=== PATIENT | female | born 1990 | race Caucasian/White ===

== ENCOUNTER 2016-12-24 13:09 | Emergency (ER) | payer BC, MEDICAID ==
[2016-12-24] MEDS ORDERED: Sodium Chloride 0.9% 10 ML Syringe FLUSH PRN (14:02)
[2016-12-24] MEDS ORDERED: Lactated Ringers 1,000 ML IV ONE (14:02)
--- NOTE | 2016-12-24 14:09 | EDM.PDOC ---
ED HPI GENERAL MEDICAL PROBLEM - General Chief Complaint: Respiratory Problem Stated Complaint: CHEST CONGESTION AND COUGH SOB Time Seen by Provider: 12/24/16 14:03 Source of Information: Reports: Patient History Limitations: Reports: No Limitations - History of Present Illness INITIAL COMMENTS - FREE TEXT/NARRATIVE: 26-year-old female presents for evaluation and treatment of diarrhea, cough and a decreased appetite. Patient reports her symptoms first started 2 days ago. Currently complaining of diarrhea, feeling dehydrated, epigastric discomfort, nausea and a cough. Patient reports that she is having about 3 to 6 episodes of diarrhea per day. No blood in her stool. Reports decreased appetite. No vomiting. she is unsure if she has any fevers she does not have a thermometer.Reports that she does have a productive cough. No urinary symptoms. Patient reports that she works at [employer] and several coworkers have been ill with similar symptoms. No recent travel. patient reports that there is a chance of ./ Middle Chest Pain Score (Numeric/FACES): 5 - Related Data Allergies Allergy/AdvReac Type Severity Reaction Status Date / Time Penicillins Allergy Rash Verified 12/24/16 13:19 Home Meds: Home Meds . [No Known Home Meds] 12/24/16 [History] Past Medical History - Past Surgical History HEENT Surgical History: Reports: Tonsillectomy GI Surgical History: Reports: Appendectomy Social & Family History - Tobacco Use Smoking Status *Q: Current Every Day Smoker Years of Tobacco use: 3 Packs/Tins Daily: 0.5 - Alcohol Use Days Per Week of Alcohol Use: 2 Number of Drinks Per Day: 2 Total Drinks Per Week: 4 - Recreational Drug Use Recreational Drug Use: No Drug Use in Last 12 Months: No - Living Situation & Occupation Living situation: Reports: with Family Occupation: Unemployed ED ROS GENERAL - Review of Systems Review Of Systems: See Below Constitutional: Denies: Fever (unsure) HEENT: Reports: Ear Pain, Throat Pain Respiratory: Reports: Cough, Sputum GI/Abdominal: Reports: Abdominal Pain (epigastric), Diarrhea, Nausea. Denies: Vomiting : Reports: No Symptoms. Denies: Dysuria ED EXAM, GENERAL - Physical Exam Exam: See Below Exam Limited By: No Limitations General Appearance: Alert, WD/WN, No Apparent Distress Eye Exam: Bilateral Eye: Normal Inspection Ears: Normal External Exam, Normal Canal, Hearing Grossly Normal, Normal TMs Nose: Normal Inspection Throat/Mouth: Normal Inspection, Normal Lips, Normal Oropharynx, Normal Voice, No Airway Compromise Respiratory/Chest: No Respiratory Distress, Lungs Clear, Normal Breath Sounds Cardiovascular: Normal Peripheral Pulses, Regular Rate, Rhythm, No Murmur GI/Abdominal: Normal Bowel Sounds, Soft, Non-Tender Neurological: Alert, Oriented, Normal Cognition Psychiatric: Normal Affect, Normal Mood Skin Exam: Warm, Dry, Normal Color Course - Vital Signs Last Recorded V/S: Last Vital Signs Temp 36.7 C 12/24/16 13:17 Pulse 82 12/24/16 15:40 Resp 16 12/24/16 15:40 BP 122/80 12/24/16 15:40 Pulse Ox 100 12/24/16 15:40 - Orders/Labs/Meds Labs: Laboratory Tests 12/24/16 12/24/16 12/24/16 Range/Units 14:15 14:15 14:15 WBC 11.86 H (3.98-10.04) K/mm3 RBC 4.40 (3.98-5.22) M/mm3 Hgb 14.4 (11.2-15.7) gm/L Hct 41.3 (34.1-44.9) % MCV 93.9 (79.4-94.8) fl MCH 32.7 H (25.6-32.2) pg MCHC 34.9 (32.2-35.5) g/dl RDW Std Deviation 44.3 (36.4-46.3) fL Plt Count 213 (182-369) K/mm3 MPV 10.5 (9.4-12.3) fl Neut % (Auto) 71.2 H (34.0-71.1) % Lymph % (Auto) 16.7 L (19.3-51.7) % Patrick % (Auto) 9.9 (4.7-12.5) % Eos % (Auto) 1.8 (0.7-5.8) Baso % (Auto) 0.3 (0.1-1.2) % Neut # (Auto) 8.45 H (1.56-6.13) K/mm3 Lymph # (Auto) 1.98 (1.18-3.74) K/mm3 Patrick # (Auto) 1.18 H (0.24-0.36) K/mm3 Eos # (Auto) 0.21 (0.04-0.36) K/mm3 Baso # (Auto) 0.03 (0.01-0.08) K/mm3 Sodium 141 (136-145) mEq/L Potassium 3.8 (3.5-5.1) mEq/L Chloride 106 (98-107) mEq/L Carbon Dioxide 27 (21-32) mEq/L Anion Gap 11.8 (5-15) BUN 7 (7-18) mg/dL Creatinine 0.8 (0.55-1.02) mg/dL Est Cr Clr Drug Dosing 125.13 mL/min Estimated GFR (MDRD) > 60 (>60) mL/min BUN/Creatinine Ratio 8.8 L (14-18) Glucose 91 (74-106) mg/dL Calcium 9.4 (8.5-10.1) mg/dL HCG, Qual Negative (NEGATIVE) Meds: Medications Discontinued Medications Generic Name Dose Route Start Last Admin Trade Name Freq PRN Reason Stop Dose Admin Lactated Ringer's 1,000 mls @ 999 mls/hr 12/24/16 14:02 12/24/16 14:20 Ringers, Lactated IV 12/24/16 15:02 999 mls/hr .BOLUS ONE Administration Sodium Chloride 10 ml 12/24/16 14:02 12/24/16 14:18 Saline Flush FLUSH 10 ml ASDIRECTED PRN Administration Keep Vein Open - Re-Assessments/Exams Free Text/Narrative Re-Assessment/Exam: 12/24/16 15:24 I reviewed the lab results with patient. She feels improved after getting some fluids. I will discharge her home. Likely a viral gastroenteritis causing her symptoms today. Discharge instructions this document. Departure - Departure Time of Disposition: 15:24 Disposition: Home, Self-Care 01 Condition: Good Clinical Impression: Viral gastroenteritis - Discharge Information Instructions: Viral Gastroenteritis, Adult, [id number] Referrals: PCP,None [Primary Care Provider] - Carolyn Alexandra PA [Physician [employer]] - Forms: ED Department Discharge, ED Return to Work/School Form Additional Instructions: rest and drink plenty of fluids. Expect this to last another 2-3 days. If your symptoms persist beyond 3 days upon follow-up with family medicine. Recommend Carolyn Alexandra at the [facility]. Please call [phone] to schedule with her. Recommend starting yogurt or a probiotics to help good bacteria back into your stomach. Recommend a bland diet. Arnold diet recommendations include egg whites, bananas, bread, rice, applesauce, toast, yogurt, etc. please return to the ER if your symptoms change or worsen.
[2016-12-24 15:45] VITALS: BP 122/80
== END 2016-12-24 15:45 | disposition home or self-care (01) ==
LOC: JD.ED 13:09
DX: A08.4 Viral intestinal infection, unspecified (principal); F17.210 Nicotine dependence, cigarettes, uncomplicated; Z88.0 Allergy status to penicillin
CPT/HCPCS: 36415; 80048; 84703; 85025; 87804; 96360; 99283; J7050; J7120

== ENCOUNTER 2022-05-05 14:39 | Emergency (ER) | payer MEDICAID ==
[2022-05-05 14:52] VITALS: BP 132/91; PULSE 90
[2022-05-05] MEDS ORDERED: HYDROmorphone 1 MG/ML Syringe IM ONE (15:14)
== END 2022-05-05 20:03 | disposition home or self-care (01) ==
LOC: JD.ED 14:39
DX: R10.2 Pelvic and perineal pain (principal); Z72.0 Tobacco use; Z88.0 Allergy status to penicillin
CPT/HCPCS: 76830; 81001; 96372; 99284; J1170; 99283

== ENCOUNTER 2022-05-28 05:43 | Emergency (ER) | payer MEDICAID ==
[2022-05-28 06:09] VITALS: BP 107/62; PULSE 118
[2022-05-28] MEDS ORDERED: predniSONE 20 MG Tab PO ONE (06:12)
[2022-05-28] MEDS ORDERED: Triamcinolone Acetonide 0.1% Crm 15 GM Tube TOP ONE (06:14)
[2022-05-28] MEDS ORDERED: predniSONE 10 MG Tab PO ONE (06:14)
== END 2022-05-28 06:40 | disposition home or self-care (01) ==
LOC: JD.ED 05:43
DX: L27.1 Localized skin eruption due to drugs and medicaments taken internally (principal); T36.4X5A Adverse effect of tetracyclines, initial encounter; L25.9 Unspecified contact dermatitis, unspecified cause; Z72.0 Tobacco use; Z88.0 Allergy status to penicillin; Z86.16 Personal history of COVID-19
CPT/HCPCS: 99283; A9270; J7512

== ENCOUNTER 2022-06-27 06:52 | Day surgery (SDC) | payer MEDICAID ==
[~2022-06-27 06:52] MED LIST: Lidocaine 1%/Sod Bicarbonate in NS 8.4% 1 ML Syringe IDERM PRN; Sodium Chloride 0.9% 10 ML Syringe FLUSH PRN; Sodium Chloride 0.9% 10 ML Syringe FLUSH SCH
[2022-06-27] MEDS ORDERED: Bupivacaine 0.5% 30 ML SDV ONE (07:22)
[2022-06-27] MEDS ORDERED: Bupivacaine 0.25%/EPINEPHrine 1:200,000 30 ML SDV ONE (07:23)
[2022-06-27] MEDS ORDERED: Propofol 200 MG/20 ML SDV ONE (07:29)
[2022-06-27] MEDS ORDERED: fentaNYL 100 MCG/2 ML SDV ONE ×2 (07:30→08:23)
[2022-06-27] MEDS ORDERED: Lidocaine 1% 5 ML VIAL ONE (07:30)
[2022-06-27] MEDS: Lactated Ringers 1,000 ML IV SCH ×2 (07:30→10:30)
[2022-06-27] MEDS ORDERED: Rocuronium 50 MG/5 ML Vial ONE ×2 (07:30→08:23)
[2022-06-27] MEDS ORDERED: Midazolam 1 MG/ML 2 ML SDV ONE (07:30)
[2022-06-27 07:55] LABS: ESTIMATED GFR 102 mL/min (>60)
[2022-06-27] MEDS ORDERED: ceFAZolin 2 GM Vial ONE (08:23)
[2022-06-27] MEDS ORDERED: Dexamethasone 4 MG/ML 5 ML MDV ONE (08:23)
[2022-06-27] MEDS ORDERED: Lactated Ringers 1,000 ML ONE ×2 (08:23→09:48)
[2022-06-27] MEDS ORDERED: Sugammadex Sodium 200 MG/2 ML VIAL ONE (09:21)
[2022-06-27] MEDS ORDERED: Ondansetron 4 MG/2 ML SDV ONE (09:29)
[2022-06-27] MEDS ORDERED: Ketorolac 30 MG/ML SDV ONE (09:29)
[2022-06-27] MEDS ORDERED: Ondansetron 4 MG/2 ML SDV IVPUSH PRN (09:36)
[2022-06-27] MEDS ORDERED: fentaNYL 100 MCG/2 ML SDV IVPUSH PRN (09:36)
[2022-06-27] MEDS: HYDROmorphone 0.5 MG/0.5 ML Syringe IVPUSH PRN ×2 (09:44→10:24)
[2022-06-27] MEDS ORDERED: Acetaminophen/oxyCODONE 325-5 MG Tab PO PRN (10:10)
[2022-06-27 14:50] VITALS: BP 110/77; PULSE 77
== END 2022-06-27 11:53 | disposition home or self-care (01) ==
LOC: JD.SDS 06:52
PROVIDERS: ATTEND Obstetrics & Gynecology
DX: N80.03 Adenomyosis of the uterus (principal); N70.01 Acute salpingitis; N70.11 Chronic salpingitis; F32.A Depression, unspecified; F17.210 Nicotine dependence, cigarettes, uncomplicated; Z88.0 Allergy status to penicillin; Z88.1 Allergy status to other antibiotic agents; Z88.8 Allergy status to other drugs, medicaments and biological substances; Z79.899 Other long term (current) drug therapy
CPT/HCPCS: 36415; 58552; 80048; 81025; 85025; 86850; 86900; 86901; A9270; J0690; J1100; J1170; J1885; J2250; J2405; J2704; J3010; J3490; J7120; 00944

== ENCOUNTER 2022-07-07 21:02 | Emergency (ER) | payer MEDICAID ==
[2022-07-07 21:16] VITALS: BP 112/76; PULSE 92
[2022-07-07] MEDS ORDERED: HYDROmorphone 1 MG/ML Syringe IVPUSH ONE (21:18)
[2022-07-07] MEDS ORDERED: Sodium Chloride 0.9% 1,000 ML IV ONE (21:18)
[2022-07-07] MEDS ORDERED: Sodium Chloride 0.9% 10 ML Syringe FLUSH PRN (21:18)
[2022-07-07] MEDS ORDERED: Ondansetron 4 MG/2 ML SDV IVPUSH ONE (21:18)
[2022-07-07] MEDS ORDERED: Iopamidol 612 MG/ML 100 ML Bottle IVPUSH ONE (21:33)
[2022-07-07] MEDS ORDERED: Levofloxacin/Dextrose 5%-Water 750 MG in Premix Bag 1 BAG IV ONE (22:47)
== END 2022-07-08 00:40 | disposition home or self-care (01) ==
LOC: JD.ED 21:02
DX: N30.01 Acute cystitis with hematuria (principal); N83.202 Unspecified ovarian cyst, left side; Z90.710 Acquired absence of both cervix and uterus; Z88.1 Allergy status to other antibiotic agents; Z88.0 Allergy status to penicillin; Z91.09 Other allergy status, other than to drugs and biological substances; Z86.16 Personal history of COVID-19
CPT/HCPCS: 36415; 74177; 80053; 81001; 83690; 83735; 85025; 86140; 87086; 96361; 96374; 96375; 99284; J1170; J1956; J2405; J7030; Q9967; 99283

== ENCOUNTER 2022-10-07 17:36 | Emergency (ER) | payer MEDICAID ==
[2022-10-07] MEDS ORDERED: Famotidine 20 MG/2 ML SDV IVPUSH ONE (17:48)
[2022-10-07] MEDS ORDERED: EPINEPHrine 1 MG/ML SDV IM ONE (17:48)
[2022-10-07] MEDS ORDERED: methylPREDNISolone Sodium Succinate 125 MG/2 ML SDV IVPUSH ONE (17:48)
[2022-10-07 21:23] VITALS: BP 120/75; PULSE 75
== END 2022-10-07 21:10 | disposition home or self-care (01) ==
LOC: JD.ED 17:36
DX: T78.40XA Allergy, unspecified, initial encounter (principal); Z88.1 Allergy status to other antibiotic agents; Z88.0 Allergy status to penicillin; Z91.09 Other allergy status, other than to drugs and biological substances; Z86.16 Personal history of COVID-19
CPT/HCPCS: 96372; 96374; 96375; 99283; J0171; J2930; J3490; 99284

== ENCOUNTER 2022-10-31 11:38 | Emergency (ER) | payer MEDICAID ==
[2022-10-31] MEDS ORDERED: Ketorolac 60 MG/2 ML SDV IM ONE (13:59)
[2022-10-31 15:28] VITALS: BP 121/78; PULSE 91
== END 2022-10-31 15:30 | disposition home or self-care (01) ==
LOC: JD.ED 11:38
DX: M72.2 Plantar fascial fibromatosis (principal); Z88.1 Allergy status to other antibiotic agents; Z88.0 Allergy status to penicillin; Z91.048 Other nonmedicinal substance allergy status; Z86.16 Personal history of COVID-19
CPT/HCPCS: 73630; 96372; 99283; J1885

== ENCOUNTER 2022-11-12 15:17 | Emergency (ER) | payer MEDICAID ==
[2022-11-12 16:13] LABS: BASOPHILS ABSOLUTE AUTO 0.04 K/mm3 (0.01-0.08); BASOPHILS PERCENT AUTO 0.3 % (0.1-1.2); EOSINOPHILS ABSOLUTE AUTO 0.07 K/mm3 (0.04-0.36); EOSINOPHILS PERCENT AUTO 0.5 (0.7-5.8); HEMATOCRIT 41.8 % (34.1-44.9); HEMOGLOBIN 14.2 gm/dl (11.2-15.7); IMMATURE GRAN ABSOLUTE AUTO 0.05 K/mm3 (0.00-0.10); IMMATURE GRAN PERCENT AUTO 0.4 % (<=1.0); LYMPHOCYTES PERCENT AUTO 24.5 % (19.3-51.7); MEAN CORPUSCULAR HEMOGLOBIN 32.3 pg (25.6-32.2); MEAN PLATELET VOLUME 9.9 fl (9.4-12.3); MONOCYTES PERCENT AUTO 7.9 % (4.7-12.5); NEUTROPHILS ABSOLUTE AUTO 9.22 K/mm3 (1.56-6.13); NEUTROPHILS PERCENT AUTO 66.4 % (34.0-71.1); PLATELET COUNT,PLT 275 K/mm3 (182-369); WHITE BLOOD CELL COUNT,WBC 13.88 K/mm3 (3.98-10.04)
[2022-11-12 16:37] LABS: A/G RATIO 1.1 (1-2); ALANINE AMINOTRANSFERASE,ALT 21 U/L (14-59); ALBUMIN 3.9 g/dl (3.4-5.0); ALKALINE PHOSPHATASE 68 U/L (46-116); ASPARTATE AMNIOTRANSFERASE,AST 16 U/L (15-37); BILIRUBIN TOTAL 0.5 mg/dL (0.2-1.0); BLOOD UREA NITROGEN,BUN 12 mg/dL (7-18); CALCIUM 9.5 mg/dL (8.5-10.1); CARBON DIOXIDE,CO2 25 mEq/L (21-32); CHLORIDE,CL 100 mEq/L (98-107); CREATININE 0.8 mg/dL (0.55-1.02); EST CRCL DRUG DOSING (CG) 118.66 mL/min; ESTIMATED GFR 102 mL/min (>60); GLUCOSE RANDOM 90 mg/dL (70-99); MAGNESIUM 1.9 mg/dL (1.8-2.4); PROTEIN TOTAL,TP 7.5 g/dl (6.4-8.2); SODIUM,NA 136 mEq/L (136-145)
[2022-11-12 16:40] LABS: TROPONIN I HIGH SENSITIVITY < 4 pg/mL (<=51)
[2022-11-12] MEDS ORDERED: Ondansetron 4 MG/2 ML SDV IVPUSH ONE (17:13)
[2022-11-12] MEDS ORDERED: Sodium Chloride 0.9% 1,000 ML IV ONE (17:13)
[2022-11-12] MEDS ORDERED: Ondansetron 4 MG Tab.DIS PO ONE (19:09)
[2022-11-13 04:45] VITALS: BP 122/78; PULSE 72
== END 2022-11-12 19:15 | disposition home or self-care (01) ==
LOC: JD.ED 15:17
DX: J06.9 Acute upper respiratory infection, unspecified (principal); Z88.1 Allergy status to other antibiotic agents; Z88.0 Allergy status to penicillin; Z91.048 Other nonmedicinal substance allergy status; Z86.16 Personal history of COVID-19; Z72.0 Tobacco use
CPT/HCPCS: 36415; 71045; 80053; 83735; 84484; 85025; 86140; 93005; 99285; A9270; 93010; 99284

== ENCOUNTER 2023-06-14 03:44 | Emergency (ER) | payer MEDICAID ==
[2023-06-14] MEDS ORDERED: diphenhydrAMINE 50 MG/ML SDV IVPUSH ONE (04:12)
[2023-06-14] MEDS: Dextrose 5%-0.9% NaCl 1,000 ML IV SCH (04:27)
[2023-06-14] MEDS: HYDROmorphone 1 MG/ML Syringe IVPUSH ONE (04:28)
[2023-06-14] MEDS: Ketorolac 30 MG/ML SDV IVPUSH SCH (04:28)
[2023-06-14] MEDS: Metoclopramide 10 MG/2 ML SDV IVPUSH ONE (04:28)
[2023-06-14 06:22] VITALS: BP 104/70; PULSE 70
== END 2023-06-14 05:54 | disposition home or self-care (01) ==
LOC: JD.ED 03:44
DX: G43.009 Migraine without aura, not intractable, without status migrainosus (principal); Z86.16 Personal history of COVID-19; Z87.891 Personal history of nicotine dependence; Z79.899 Other long term (current) drug therapy; Z88.0 Allergy status to penicillin; Z88.1 Allergy status to other antibiotic agents; Z91.048 Other nonmedicinal substance allergy status
CPT/HCPCS: 96361; 96374; 96375; 99283; J1170; J1885; J2765; J7042; 99284

== ENCOUNTER 2023-06-26 02:19 | Emergency (ER) | payer MEDICAID ==
[2023-06-26 02:31] VITALS: BP 146/95; PULSE 76
[2023-06-26] MEDS: Sodium Chloride 0.9% 1,000 ML IV ONE (02:57)
[2023-06-26] MEDS: Prochlorperazine 10 MG/2 ML SDV IVPUSH ONE (02:57)
[2023-06-26] MEDS: Ketorolac 30 MG/ML SDV IVPUSH ONE (02:58)
[2023-06-26] MEDS: Sodium Chloride 0.9% 10 ML Syringe FLUSH PRN (03:04)
[2023-06-26 03:06] LABS: BASOPHILS ABSOLUTE AUTO 0.1 K/mm3 (0.0-0.2); BASOPHILS PERCENT AUTO 0.7 % (0.0-1.0); EOSINOPHILS ABSOLUTE AUTO 0.3 K/mm3 (0.0-0.4); EOSINOPHILS PERCENT AUTO 3.5 % (0.0-6.0); HEMATOCRIT 38.5 % (37.0-47.0); HEMOGLOBIN 13.3 gm/dl (12.0-16.0); IMMATURE GRAN ABSOLUTE AUTO 0.02 K/mm3 (0.00-0.05); IMMATURE GRAN PERCENT AUTO 0.2 % (0.0-0.4); LYMPHOCYTES ABSOLUTE AUTO 3.8 K/mm3 (1.0-4.8); LYMPHOCYTES PERCENT AUTO 42.5 % (24.0-44.0); MEAN CORPUSCULAR HEMOGLOBIN 32.5 pg (28.0-32.0); MEAN CORPUSCULAR HGB CONC 34.5 g/dl (32.0-36.0); MEAN CORPUSCULAR VOLUME 94.1 fl (83.0-99.0); MEAN PLATELET VOLUME 9.2 fl (9.4-12.3); MONOCYTES ABSOLUTE AUTO 0.6 K/mm3 (0.0-0.8); MONOCYTES PERCENT AUTO 6.9 % (0.0-8.0); NEUTROPHILS ABSOLUTE AUTO 4.1 K/mm3 (1.8-7.7); NEUTROPHILS PERCENT AUTO 46.2 % (41.0-71.0); PLATELET COUNT,PLT 256 K/mm3 (150-400); RED BLOOD CELL COUNT 4.09 M/mm3 (4.10-5.30); WHITE BLOOD CELL COUNT,WBC 8.94 K/mm3 (3.9-11.3)
[2023-06-26 03:33] LABS: ALBUMIN 3.5 g/dl (3.4-5.0); BILIRUBIN TOTAL 0.1 mg/dL (0.2-1.0); BUN/CREATININE RATIO 18.6 (14-18); CALCIUM 8.9 mg/dL (8.5-10.1); CREATININE 0.7 mg/dL (0.55-1.02); EST CRCL DRUG DOSING (CG) 135.61 mL/min; MAGNESIUM 1.7 mg/dL (1.8-2.4); PROTEIN TOTAL,TP 7.1 g/dl (6.4-8.2)
== END 2023-06-26 04:20 | disposition home or self-care (01) ==
LOC: JD.ED 02:19
DX: G43.009 Migraine without aura, not intractable, without status migrainosus (principal); H53.143 Visual discomfort, bilateral; Z88.0 Allergy status to penicillin; Z91.048 Other nonmedicinal substance allergy status; Z88.8 Allergy status to other drugs, medicaments and biological substances; Z88.1 Allergy status to other antibiotic agents; Z79.899 Other long term (current) drug therapy; Z86.16 Personal history of COVID-19; Z90.49 Acquired absence of other specified parts of digestive tract; Z90.710 Acquired absence of both cervix and uterus
CPT/HCPCS: 36415; 80053; 83735; 85025; 86140; 96374; 96375; 99284; J0780; J1885; J3490; J7030